=== PATIENT | female | born 1950 | race Caucasian/White ===

== ENCOUNTER 2018-05-01 13:06 | Day surgery (SDC) | payer OTHER ==
[2018-04-30 13:52] VITALS: BMI 38.0
--- NOTE | 2018-05-01 13:41 | HP ---
History & Physical Update - Physical Physical: No Change - Assessment Assessment: No Change - Plan Plan: No Change (endometrial polyp for hysteroscopy, EM polypectomy)
[2018-05-01] MEDS ORDERED: SUCCINYLCHOLINE CHLORIDE 200 MG/10 ML VIAL ONE (14:21)
[2018-05-01] MEDS ORDERED: MIDAZOLAM HCL 2 MG/2 ML SINGLE DOSE VIAL ONE (14:21)
[2018-05-01] MEDS ORDERED: PROPOFOL 20 ML ONE (14:21)
[2018-05-01] MEDS ORDERED: DEXAMETHASONE SOD PHOSPHATE 4 MG/1 ML VIAL ONE (14:22)
[2018-05-01] MEDS ORDERED: LIDOCAINE HCL/PF 2% SDV 5ML VIAL ONE (14:22)
[2018-05-01] MEDS ORDERED: IBUPROFEN 800 MG/8 ML IJ IVPB PRN (14:28)
[2018-05-01] MEDS ORDERED: oxyCODONE HCL 5 MG TABLET PO PRN (14:28)
[2018-05-01] MEDS ORDERED: IBUPROFEN 600 MG TABLET (FP) PO PRN (14:28)
[2018-05-01] MEDS ORDERED: ONDANSETRON 4 MG/2 ML VIAL IVPUSH PRN (14:28)
[2018-05-01] MEDS ORDERED: ELECTROLYTE-148 SOLN 1,000 ML IV SCH (14:30)
[2018-05-01] MEDS ORDERED: LACTATED RINGERS SOLUTION 1,000 ML IV SCH (15:30)
[2018-05-01 18:02] VITALS: TEMP 97.8
[2018-05-01 18:07] VITALS: BP 128/70; PULSE 73
--- NOTE | 2018-05-05 17:33 | PATH ---
Surgical Pathology Report Patient Name: JOY JOHNSON [facility]. Rec. #: [id number] /Age/Gender: 1950 (Age: 67) / F Account: [id number] Location: [facility] Taken: 05/01/2018 Received: 05/04/2018 Reported: 05/05/2018 Physicians: Rodney Zazueta M.D. Specimen(s) Received ENDOMETRIAL CURETTINGS Clinical History Endometrial polyp Final Diagnosis ENDOMETRIAL CURETTINGS, DILATION AND CURETTAGE: STRIPS OF ENDOMETRIAL GLANDS SUGGESTIVE OF ATROPHIC ENDOMETRIUM IN A BACKGROUND OF BENIGN CERVICAL TISSUE, MUCUS AND BLOOD Electronically Signed Joan Bailon M.D. Gross Description Received in formalin labeled "endometrial curettings," is a 1.5 x 1.5 x 0.2 cm aggregate of martini-brown soft tissue fragments admixed with blood clot. The formalin is filtered and the specimen is entirely submitted in one cassette. /05/04/2018 saudi05/04/2018
--- NOTE | 2018-07-20 13:33 | OP ---
DATE OF OPERATION: 05/01/2018 PREOPERATIVE DIAGNOSIS: Postmenopausal bleeding, thickened endometrial, endometrial polyp. POSTOPERATIVE DIAGNOSIS: Postmenopausal bleeding, thickened endometrial, endometrial polyp. PROCEDURE: Hysteroscopy, dilation and curettage, and polypectomy. SURGEON: Rodney Zazueta MD ANESTHESIA: General. ESTIMATED BLOOD LOSS: 25 mL. DESCRIPTION OF PROCEDURE: The patient was taken to the operating room. Under adequate general anesthesia, abdomen and peritoneum were prepped and draped. Examination under anesthesia revealed external genitalia to be normal. Vagina was atrophic. Cervix was clean. No gross lesion. Uterus was normal size. At the adnexa no masses palpable. Then with a weighted speculum in the vagina, the vagina was cleaned with Betadine. Then the anterior lip of the cervix was grasped with a single-tooth tenaculum. Cervix was slightly dilated with Hegar dilator. Hysteroscope was introduced. Visualization of endocervical canal appear to be normal. Endometrium appeared to be atrophic. No gross lesions seen. There was a small polyp at the fundal area of the uterus, and there was a patchy endometrium around the polyp. The rest of the endometrium appeared to be atrophic. Both cornual regions of the uterus were visualized. Tubal ostia were noted. Then the polyp, which was small 0.5 mm, was excised. Then the endometrium was curetted. The patient tolerated the procedure well and left the OR in good condition. RODNEY ZAZUETA M.D. [id number]
== END 2018-05-01 17:30 | disposition home or self-care (01) ==
LOC: JASU-SURG 13:06
PROVIDERS: ATTEND Obstetrics & Gynecology
PROC: 0UJD8ZZ Inspection of Uterus and Cervix, Via Natural or Artificial Opening Endoscopic (ICD-10-PCS; 2018-05-01)
PROC: 0UB97ZX Excision of Uterus, Via Natural or Artificial Opening, Diagnostic (ICD-10-PCS; principal; 2018-05-01 14:30)
PROC: 0UDB7ZX Extraction of Endometrium, Via Natural or Artificial Opening, Diagnostic (ICD-10-PCS; 2018-05-01 14:30)
DX: N95.0 Postmenopausal bleeding (principal); N85.00 Endometrial hyperplasia, unspecified; N84.0 Polyp of corpus uteri
CPT/HCPCS: 71046-TC-FY; 82962; 88305-TC; 94760

== ENCOUNTER → 2021-08-22 | Day surgery (SDC) | payer OTHER | END | disposition home or self-care (01) | LOC: JRADUS-SUR 12:43 | PROVIDERS: ATTEND Physician Assistant | PROC: 0H9U3ZX Drainage of Left Breast, Percutaneous Approach, Diagnostic (ICD-10-PCS; principal; 2021-08-22) | DX: C50.912 Malignant neoplasm of unspecified site of left female breast (principal); C77.3 Secondary and unspecified malignant neoplasm of axilla and upper limb lymph nodes; Z17.0 Estrogen receptor positive status [ER+] | CPT/HCPCS: 19083; 19084; 77065-TC; 87899; 88305-TC; 88341-TC; 88342-TC; A4648 ==